=== PATIENT | female | born 1985 | race Caucasian/White ===

== ENCOUNTER → 2020-08-09 | Outpatient (CLI) | payer BC ==
--- NOTE | 2020-08-10 08:31 | CT ---
EXAMINATION TYPE: CT soft tissue neck w con DATE OF EXAM: 08/09/2020 COMPARISON: None HISTORY: Enlarged lymph nodes. CT DLP: 550.9 mGycm CONTRAST: Patient injected with 100 mL of Isovue M300. TECHNIQUE: Axial images at 3 mm thick sections. Reconstructed images in the coronal plane and sagitt al plane are reviewed. FINDINGS: Limited CT sections are obtained the lung apices. The lung apices appear clear. CT neck: The torus tubarius and fossa of Rosenmuller are normal. Operations Assistant spaces are normal. Para nasal sinuses and mastoid air cells are clear. Parotid glands appear normal and symmetrical. Submandibular glands, are normal. Parapharyngeal spac es are normal. No suspicious adenopathy is evident. More prominent jugulodigastric lymph nodes are e vident, not enlarged by CT criteria. Scattered bilateral small lymph nodes are present. The hypopharynx appears within normal limits. Vocal cord level appear symmetrical. Thyroid as visualized is normal. Osseous structures are normal. Upper lung windows appear clear. No superior mediastinal lymphadenopathy is evident. Mucosal thickenings within ethmoid air cells. Mucosal thickening or retention cysts within the left m axillary sinus. Remaining visualized paranasal sinuses are clear. IMPRESSIONS: 1. Scattered small lymph nodes present bilaterally. No suspicious enlarged adenopathy is identified. 2. Soft tissue neck is otherwise unremarkable.
== END | disposition home or self-care (01) ==
LOC: RADCTMAIN 17:54
PROVIDERS: ATTEND Family Medicine
DX: R59.0 Localized enlarged lymph nodes (principal)
CPT/HCPCS: 70491; Q9967

== ENCOUNTER → 2020-09-08 | Outpatient (CLI) | payer BC ==
[2020-09-08 19:14] LABS: HCT 43.3 % (37.2-46.3); HGB 14.7 g/dL (12.0-15.0); MCH 33.6 pg (27.0-32.0); MCHC 33.9 g/dL (32.0-37.0); MCV 99.1 fL (80.0-97.0); Mean Platelet Volume 10.7 fL (9.5-12.2); Platelet Count 295 X 10*3/uL (140-440); RBC 4.37 X 10*6/uL (4.10-5.20); RDW 11.9 % (11.5-14.5); WBC 9.37 X 10*3/uL (4.50-10.00)
[2020-09-08 22:50] LABS: Thyroid Peroxidase Antibodies 41.3 U/mL (0.0-60.0)
[2020-09-08 22:52] LABS: African American GFR (CKD) 129.2 (60.0-200.0); Albumin 4.8 g/dL (3.80-4.90); Albumin/Globulin Ratio 1.92 (1.60-3.17); Anion Gap 9.4 mmol/L (4.00-12.00); Calcium 9.2 mg/dL (8.7-10.3); Carbon Dioxide 23.6 mmol/L (21.6-31.8); Globulin 2.5 g/dL (1.6-3.3); Non-African American GFR(CKD) 111.5 (60.0-200.0); Potassium 4.4 mmol/L (3.5-5.5); Total Bilirubin 0.3 mg/dL (0.3-1.2); Total Protein 7.3 g/dL (6.2-8.2)
[2020-09-08 23:00] LABS: Prolactin 5.9 ng/mL (2.8-29.2); T4, Free (Free Thyroxine) 1.5 ng/dL (0.80-1.80)
[2020-09-09 05:47] LABS: ACTH 16.1 pg/mL (0.00-45.99)
== END | disposition home or self-care (01) ==
LOC: LABWHC1 12:57
PROVIDERS: ATTEND Internal Medicine Endocrinology, Diabetes & Metabolism
DX: E04.2 Nontoxic multinodular goiter (principal); R53.83 Other fatigue
CPT/HCPCS: 36415; 80053; 82024; 82533; 82607; 84146; 84439; 84443; 84481; 85027; 86376

== ENCOUNTER → 2020-11-03 | Outpatient (CLI) | payer BC | END | disposition home or self-care (01) | LOC: LABWHC1 12:04 | PROVIDERS: ATTEND Family Medicine | DX: M79.603 Pain in arm, unspecified (principal) | CPT/HCPCS: 36415; 85379 ==

== ENCOUNTER → 2021-01-23 | Outpatient (CLI) | payer BC | END | disposition home or self-care (01) | LOC: RADMRIMAIN 18:54 | PROVIDERS: ATTEND Orthopaedic Surgery | DX: Z53.9 Procedure and treatment not carried out, unspecified reason (principal) ==

== ENCOUNTER → 2021-02-24 | Outpatient (CLI) | payer BC ==
[2021-02-24 09:48] LABS: Basophils # (A) 0.1 k/uL (0-0.2); Basophils % (A) 1 %; Eosinophils # (A) 0.3 k/uL (0-0.7); Eosinophils % (A) 3 %; HCT 45.2 % (34.0-46.0); Lymphocytes # (A) 2.7 k/uL (1.0-4.8); Lymphocytes % (A) 26 %; MCHC 33.3 g/dL (31.0-37.0); MCV 102.2 fL (80.0-100.0); Mean Platelet Volume 8.5; Monocytes # (A) 0.5 k/uL (0-1.0); Monocytes % (A) 5 %; Neutrophils # (A) 6.8 k/uL (1.3-7.7); Neutrophils % (A) 64 %; Platelet Count 298 k/uL (150-450); RBC 4.42 m/uL (3.80-5.40); WBC 10.6 k/uL (3.8-10.6)
[2021-02-24 09:58] LABS: Potassium 4.7 mmol/L (3.5-5.1)
== END | disposition home or self-care (01) ==
LOC: LABPAT 08:39
PROVIDERS: ATTEND Orthopaedic Surgery
DX: Z01.812 Encounter for preprocedural laboratory examination (principal); M75.42 Impingement syndrome of left shoulder
CPT/HCPCS: 36415; 80051; 85025

== ENCOUNTER 2021-03-03 06:05 | Day surgery (SDC) | payer BC ==
[2021-03-01 12:52] VITALS: BMI 40.8
--- NOTE | 2021-03-02 12:17 | HP ---
HISTORY AND PHYSICAL CHIEF COMPLAINT: Left shoulder pain. 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 She notes progressive pain and stiffness. She completed a course of therapy without much relief. She has also tried medications without significant relief. She notes this significantly limits her. PAST MEDICAL HISTORY: Significant for hypertension, hypothyroidism. PAST SURGICAL HISTORY: Significant for cholecystectomy and hernia repair. CURRENT ALLERGIES: Metoprolol. ALLERGIES: She denies drug allergies. FAMILY HISTORY: Significant for cancer and hypertension. SOCIAL HISTORY: Negative for current tobacco or alcohol use. REVIEW OF SYSTEMS: Sixteen-point review of systems is otherwise reviewed and noncontributory. PHYSICAL EXAMINATION: On examination, the patient is approximately 5 feet tall, 210 pounds of endomorphic habitus. HEENT exam is nonfocal. NECK is supple. On examination of her left shoulder, she is tender about the anterior subacromial space. Mild subacromial crepitus is noted. Active range of motion forward elevation to 95 degrees, external rotation with arm at side 30 degrees, internal rotation to L5. Passively I am able to forward elevate her 100 degrees. Motor strength is 5 minus over 5 for external rotation and abduction. Impingement test, Neer tests are positive. Her distal neurovascular exam appears intact in the left upper extremity. Previous MRI report left shoulder 02/01/2021 shows tendinosis of the supraspinatus. IMPRESSION: 1. Left shoulder adhesive capsulitis. 2. Left shoulder impingement with rotator cuff tendinitis and possible partial- thickness tear. RECOMMENDATIONS: I talked to the patient at length regarding her condition and treatment options. At this point she remains quite symptomatic despite extensive conservative measures. After thorough discussion, she opts to proceed with surgery. We will plan to proceed with arthroscopic evaluation with probable subacromial decompression, possible synovectomy/rotator cuff debridement, in addition to possible manipulation under anesthesia. Risks and benefits were discussed at length in layman's terms. We will likely perform that as an outpatient procedure. MMODL / IJN: [id number] /
[~2021-03-03 06:05] MED LIST: DEXAMETHASONE SOD PHOSPHATE 4 MG/ML 1 ML VIAL IV ONE; LACTATED RINGERS 1,000 ML IV SCH; LIDOCAINE 1% (10MG/ML) FOR IV START INTRADERMA PRN; MIDAZOLAM 2 MG/2 ML VIAL IV PRN; ONDANSETRON 4 MG/2 ML VIAL IVP ONE
[2021-03-03] MEDS ORDERED: HYDROmorphone 0.5 MG/0.5 ML SYRINGE IVP PRN (07:00)
[2021-03-03] MEDS ORDERED: MIDAZOLAM 2 MG/2 ML VIAL IV ONE (07:13)
[2021-03-03] MEDS ORDERED: ROPIVACAINE 5 MG/ML 30 ML VIAL ONE (07:35)
[2021-03-03] MEDS ORDERED: MIDAZOLAM 2 MG/2 ML VIAL ONE (07:35)
[2021-03-03] MEDS ORDERED: EPINEPHrine (PF) 1 ML in SODIUM CHLORIDE 0.9% IRRIGATIO 3,000 ML IRRIGATION ONE ×8 (07:35)
[2021-03-03] MEDS ORDERED: SUCCINYLCHOLINE CHLORIDE 100 MG/5 ML SYR IV ONE (07:35)
[2021-03-03] MEDS ORDERED: DEXAMETHASONE SOD PHOSPHATE 4 MG/ML 1 ML VIAL ONE (07:35)
[2021-03-03] MEDS ORDERED: PROPOFOL 10 MG/ML 20 ML VIAL IV ONE (07:35)
[2021-03-03] MEDS ORDERED: fentaNYL (PF) 50 MCG/ML 2 ML AMP ONE (07:35)
[2021-03-03] MEDS ORDERED: NEOSTIGMINE 1 MG/ML 10 ML VIAL ONE (07:35)
[2021-03-03] MEDS ORDERED: GLYCOPYRROLATE 0.2 MG/ML 2 ML VIAL ONE (07:35)
[2021-03-03] MEDS ORDERED: KETOROLAC 15 MG/ML 1 ML VIAL ONE (07:35)
[2021-03-03] MEDS ORDERED: LIDOCAINE 1% INJ 10MG/ML (20 ML MDV) ONE (07:35)
[2021-03-03] MEDS ORDERED: ROCURONIUM 10 MG/ML (5 ML VIAL) IV ONE (07:35)
[2021-03-03] MEDS ORDERED: LACTATED RINGERS 1,000 ML IV ONE (08:20)
--- NOTE | 2021-03-03 08:47 | P.OP ---
Date of Procedure: 03/03/21 Preoperative Diagnosis: Left shoulder adhesive capsulitis/synovitis/ rotator cuff tendinitis/acromioclavicular joint arthritis Postoperative Diagnosis: Same Procedure(s) Performed: Left shoulder arthroscopic subacromial decompression/synovectomy/distal cla vicular resection/rotator cuff debridement/manipulation under anesthesia Anesthesia: sera BO Surgeon: Silvino Fernández Manager Business Intelligence #1: Ronnie Sanderson Estimated Blood Loss (ml): 10 Pathology: none sent Condition: stable Disposition: PACU Indications for Procedure: The patient's a 35-year-old female who presents with progressive left shoulder pain and stiffness despite conservative treatment. A discussion of the risks and benefits of operative intervention versus continued conservative measures made with patient. She opted to pursue surgery. Operative risks to include infection, neurovascular injury, developed blood clots, possible recurrence of stiffness and need for subsequent procedures was discussed. Informed consent was obtained. Operative Findings: As below Description of Procedure: The patient was brought to the operating room, and after induction of general anesthesia was placed in a beachchair position. A preoperative interscalene block was placed for postoperative analgesia. I examined the left shoulder. There was significant block to passive motion. Gentle manipulation was performed first with the arm at the side obtaining full external rotation. Moderate adhesions were encountered. I then obtained full forward elevation. Again there were moderate adhesions encountered. The left upper extremity was prepped and draped in normal fashion. The bony outlines the acromion, distal clavicle, and coracoid process were outlined with a skin marker. The glenohumeral joint was inflated with 50 mL of saline utilizing a spinal needle from posterior approach. A posterior portal was made through a 5 mm skin incision 1 cm medial and inferior to the posterior lateral border time. A blunt trocar was used to easily into the joint. Diagnostic arthroscopy was performed. An anterior portal was made just lateral to the coracoid process entering the joint above the subscapularis tendon. The subscapularis tendon appeared to be intact. There was significant synovitis involving the rotator interval that was debrided with a motorized shaver. Anterior labrum was intact. The inferior recess was inspected. The posterior labrum was intact. The long head of the biceps appeared to be intact. On inspection the rotator cuff, a partial thickness tear involving the anterior aspect the spur supraspinatus was noted involving approximately 3 mm of the tendon thickness. This was debrided back to stable base with a motorized shaver. The posterior portion the rotator cuff was intact. The arthroscope was then placed into the subacromial space. A lateral portal was made 2 centimeters inferior to the anterior lateral border of the acromion. The soft tissue on the undersurface of the acromion was debrided wit h a motorized shaver and electrocautery clearly defining the anterior medial and lateral borders as well as the distal clavicle. An anterior inferior acromioplasty was performed with a motorized ladan starting anterolateral, then extending this posteriorly, then extending this medially. I converted to a flat acromion and this was verified in the posterior and lateral viewing portals. The greater tuberosity was lightly decorticating with a shaver down to a bleeding bony surface. The distal clavicle was inspected. This appeared to impinge on the subacromial space therefore the distal 4 mm was resected with a motorized bur. Attention was then paid towards the rotator cuff. There was significant bursal thickening that was debrided with a motorized shaver. The rotator cuff appeared to be intact on the bursal surface. The arthroscope was then removed. The portals were closed with simple 3-0 nylon sutures. A sterile dressing was applied in addition to a sling. The patient was then awoken from general anesthesia and transferred to recovery room in good condition. Blood loss was estimated at 10 mL. No complications were incurred. Sponge and needle counts were correct in the case. Ronnie TILLEY assisted and the major components of the case to include arm positioning, decompression, and closure.
[2021-03-03 08:54] VITALS: TEMP 97
[2021-03-03] MEDS ORDERED: ONDANSETRON 4 MG/2 ML VIAL ONE (08:56)
[2021-03-03] MEDS ORDERED: ONDANSETRON 4 MG/2 ML VIAL IVP ONE (09:00)
[2021-03-03] MEDS ORDERED: diphenhydrAMINE 50 MG/ML 1 ML VIAL ONE (09:10)
[2021-03-03] MEDS ORDERED: diphenhydrAMINE 50 MG/ML 1 ML VIAL IVP ONE (09:13)
[2021-03-03 10:09] VITALS: BP 119/86; PULSE 75; RESP 16
--- NOTE | 2021-03-05 20:08 | P.ANPRN ---
Procedure Note - Anesthesia - Nerve Block Performed Left Interscalene Single Time Out Performed: Yes Date of Procedure: 03/03/21 Procedure Start Time: 07:12 Procedure Stop Time: 07:18 Location of Patient: PreOp Indication: Acute Post-Operative Pain, Requested by Surgeon Sedation Type: Sedate with meaningful contact maintained Preparation: Sterile Prep Position: Supine Needle Types: Pajunk Needle Gauge: 21 Ultrasound used to visualize needle placement: Yes Ultrasound used to observe medication spread: Yes Blood Aspirated: No Pain Paresthesia on Injection Noted: No Resistance on Injection: Normal Image Stored and Saved: Yes Events: Uneventful and Well Tolerated (Ropivacaine 0.5% 20 mL plus dexamethasone 4 mg)
== END 2021-03-03 10:35 | disposition home or self-care (01) ==
LOC: OR 06:05
PROVIDERS: ATTEND Orthopaedic Surgery
DX: M75.02 Adhesive capsulitis of left shoulder (principal); M19.012 Primary osteoarthritis, left shoulder; I10 Essential (primary) hypertension; E03.9 Hypothyroidism, unspecified; Z90.49 Acquired absence of other specified parts of digestive tract; Z98.890 Other specified postprocedural states; Z79.899 Other long term (current) drug therapy; Z82.49 Family history of ischemic heart disease and other diseases of the circulatory system; Z80.9 Family history of malignant neoplasm, unspecified
CPT/HCPCS: 29822; 29824; 64415; 81025; 76942; J2250; J1200; J1100; J2710; J0690; J2405; J0171; J2001; J3010; J2795; J1885; J0330; J2704; J1170

== ENCOUNTER → 2021-03-29 | Outpatient (CLI) | payer BC ==
--- NOTE | 2021-04-03 12:04 | MM ---
Reason for exam: screening (asymptomatic). Baseline mammogram. History: Patient is nulliparous. Took hormonal contraceptives for 20 years. Physical Findings: Nurse did not find any significant physical abnormalities on exam. MG 3D Screening Mammo W/Cad Bilateral CC and MLO view(s) were taken. There are scattered fibroglandular densities. Left MLO limited far posterior tissue. Technologist reports recent shoulder surgery. Posterior left MLO nodularity. Suspected low axillary tail lymph node. 3 months follow up recommended. ASSESSMENT: Probably benign, BI-RAD 3 RECOMMENDATION: Follow-up diagnostic mammogram of the left breast in 3 months.
== END | disposition home or self-care (01) ==
LOC: RADMAMWWP 09:32
PROVIDERS: ATTEND Obstetrics & Gynecology
DX: Z12.31 Encounter for screening mammogram for malignant neoplasm of breast (principal)
CPT/HCPCS: 77063; 77067

== ENCOUNTER → 2021-06-30 | Outpatient (CLI) | payer SELFPAY ==
--- NOTE | 2021-07-03 10:28 | MM ---
Reason for exam: follow-up at short interval from prior study. Last mammogram was performed 3 months ago. History: Patient is nulliparous. Took hormonal contraceptives for 20 years. Physical Findings: Nurse did not find any significant physical abnormalities on exam. MG Diagnostic Mammo LT w CAD CC, MLO, and XCCL view(s) were taken of the left breast. Prior study comparison: March 29, 2021, bilateral MG 3d screening mammo w/cad. The breast tissue is heterogeneously dense. This may lower the sensitivity of mammography. Persistent stable 6mm round lesion left posterior upper outer quadrant. These results were verbally communicated with the patient and result sheet given to the patient on 06/30/21. ASSESSMENT: Incomplete: need additional imaging evaluation, BI-RAD 0 RECOMMENDATION: Ultrasound of the left breast.
--- NOTE | 2021-07-03 10:30 | USB ---
Reason for exam: additional evaluation requested from abnormal screening. History: Patient is nulliparous. Took hormonal contraceptives for 20 years. US Breast Axilla LT Left breast axilla ultrasound demonstrates a 5mm benign lymph node likely correlates to mammographic finding. These results were verbally communicated with the patient and result sheet given to the patient on 06/30/21. ASSESSMENT: Benign, BI-RAD 2 RECOMMENDATION: Routine screening mammogram of both breasts at age 38.
== END | disposition home or self-care (01) ==
LOC: RADMAMWWP 10:55
PROVIDERS: ATTEND Obstetrics & Gynecology
DX: R92.8 Other abnormal and inconclusive findings on diagnostic imaging of breast (principal)
CPT/HCPCS: 77065

== ENCOUNTER → 2023-08-19 | Outpatient (CLI) | payer OTHER ==
--- NOTE | 2023-08-19 17:43 | P.SLEEP ---
History of Present Illness DATE: 08/19/2023 CONSULTATION/NEW PATIENT EVALUATION HISTORY OF PRESENT ILLNESS/SLEEP-WAKE EVALUATION: 37-year-old lady had been ev aluated in the sleep center for possible obstructive sleep apnea hypopnea syndrome, possible leg movements at night. SLEEP SCHEDULE: Usually sleep schedule from 11:30 PM to 7 AM on weekdays and from 2003 AM until 1011 AM on weekend. FALLING ASLEEP: Patient has significant difficulties with falling asleep, has TV set and bedroom. DURING SLEEP: Patient snores and wakes up from sleep 3 times with dry mouth and with one episode of nocturia. Positive history of hypnogogical hallucinations, no sleep paralysis, no cataplexy. Positive history of possible night terrors. DURING THE DAY/WAKE STATE: Patient wake up tired, has difficulties to pay attention, has problems with memory, concentration, irritability and anxiety. [place] sleepiness scale is 6. Patient may take 1 nap after work. PAST MEDICAL HISTORY: Hypertension, rheumatoid arthritis, headaches, thyroid nodule, acid reflux. PAST SURGICAL HISTORY: Left shoulder surgery, cholecystectomy, hernia repair. MEDICATIONS: metoprolol 50 mg once a day, amlodipine 2.5 mg once a day. SOCIAL HISTORY: positive history of smoking half pack a day up to 15 years, quit in 2014, alcohol consumption occasional. FAMILY HISTORY: Heart problems, emphysema, diabetes. REVIEW OF SYSTEMS: snoring, multiple awakenings from sleep. No fevers. No double vision. No recent chest pain. No shortness of breath. No abdominal pain. No bleeding episodes. No blood in urine. No seizure episodes. PHYSICAL EXAMINATION: GENERAL: A pleasant patient without any distress. VITAL SIGNS: BP 141/95 , HR 71 , RR 12 , weight 237.0 pounds, height 5 foot 1.5 inches, body mass index 44.0 . HEENT: PERRLA, EOMI. Evaluation of oropharynx showed tongue protrudes midline, low position of soft palate Mallampati 3. NECK: Supple. No JVD. Thyroid is not palpable. 16 inches in circumference. LUNGS: Clear to percussion and to auscultation. Good air exchange. No wheezing or rhonchi. HEART: S1, S2 regular. No murmurs, gallops or rubs. ABDOMEN: Soft and nontender. Bowel sounds are present. No organomegaly appreciated. EXTREMITIES: No clubbing or cyanosis. ORACLE DRM CONSULTANT: Awake, alert, and oriented x3. Cranial nerves 2 to 7 intact. There is no fasciculation or atrophy noted. No focal deficits observed. ASSESSMENT: 1. Snoring, multiple awakenings from sleep, low position of soft palate Mallampati 3, white neck 16 inches in circumference, sleepiness. Obstructive sleep apnea hypopnea syndrome. 2. Obesity, BMI 44.0. 3. restless leg symptoms. 4. possibly periodic limb movements. 5 Hypertension. 6 . history of rheumatoid arthritis. 7. headaches. 8. thyroid nodule. 9 . acid reflux. 10. left shoulder surgery. 11. status post cholecystectomy. 12. status post hernia repair. PLAN: 1. Polysomnography for evaluation of patient's breathing during sleep and to check for possible periodic limb movements . 2. Following plan after reading sleep study 3. Preferable position during sleep on the side. 4. No driving if patient feels any sleepiness. Patient is aware of civil and criminal liability for unsafe driving. 5. Sleep hygiene with regular sleep time for at least 7.5-8 hours. 6. Watching and losing weight. Thank you very much for referring this patient for consultation. Sincerely, Steve Dent MD, PhD, FAASM. Diplomat of [place] [employer], Sleep Medicine Board by [place] [employer] [employer] Gathering Technician of [facility] [place] Past Medical History Past Medical History: Hypertension Additional Past Medical History / Comment(s): PT STATES THAT SHE USED TO ON LISINOPRIL BUT HER DOCTOR TOOK THEM OFF History of Any Multi-Drug Resistant Organisms: None Reported Past Surgical History: Cholecystectomy, Hernia Repair Past Alcohol Use History: None Reported Medications and Allergies Home Medications Medication Instructions Recorded Confirmed Type Metoprolol Succinate (ER) [Toprol 50 mg PO DAILY 03/01/21 03/03/21 History Xl] HYDROcodone/APAP 7.5-325MG [[place] 1 each PO Q6HR PRN #21 tab 03/03/21 Rx 7.5] Allergies Allergy/AdvReac Type Severity Reaction Status Date / Time No Known Allergies Allergy Verified 06/30/21 11:41 Sleep Note - Sleep Note Sleep Note: Temperature: Pulse Rate: Respiratory Rate: Blood Pressure: SpO2: Height: Weight: BMI: Neck Circumference:
== END ==
LOC: 3 N SLEEP 15:37
PROVIDERS: ATTEND Internal Medicine
DX: G47.33 Obstructive sleep apnea (adult) (pediatric) (principal); E66.9 Obesity, unspecified; G25.81 Restless legs syndrome; G47.61 Periodic limb movement disorder; I10 Essential (primary) hypertension; M06.9 Rheumatoid arthritis, unspecified; R51.9 Headache, unspecified; E04.1 Nontoxic single thyroid nodule; K21.9 Gastro-esophageal reflux disease without esophagitis; Z98.890 Other specified postprocedural states; Z90.49 Acquired absence of other specified parts of digestive tract; R06.83 Snoring; Z68.41 Body mass index [BMI] 40.0-44.9, adult; Z79.899 Other long term (current) drug therapy
CPT/HCPCS: 99211

== ENCOUNTER 2023-11-18 19:50 | Outpatient (CLI) | payer OTHER ==
--- NOTE | 2023-11-20 13:28 | P.PCN ---
Description of Procedure: CLINICAL: Titration with positive air pressure has been done for correction of respiratory abnormalities during sleep. DESCRIPTION OF PROCEDURE: The standard montage for clinical polysomnography included the electroencephalogram, the electrocardiogram, the mentalis surface electromyography and Lead II cardiography. The respiratory battery consisted of measurements of nasal /buccal air flow, pressure transducer measurements from the nose, thoracic and /or abdominal effort and intercostal surface electromyography. Video monitoring has been done to check for any parasomnia events. Nocturnal oxyhemoglobin saturations were obtained by finger oximetry. Step-escobar titration with positive airway pressure was utilized to control respiratory events. Raw data of sleep recording has been reviewed and is adequate. RESULTS: Sleep efficiency was decreased to 79.2%. Latency to sleep onset was extremely long 68.5 minutes.]. Sleep architecture showed stage N1 was slightly short 4.0%, Delta sleep was normal 20.1%, REM sleep was slightly short 18.4%. Heart rate was minimum 60 BPM, maximum 73 BPM, average 66 BPM. EMG showed 0 periodic limb movements per hour. PAP titration have been done with CPAP up to the pressure 8 cm H2O. The best results were at the pressure 8 cm H2O. Apnea hypopnea index reduced to 1.4. IMPRESSION: 1. Obstructive sleep apnea hypopnea syndrome mostly on controle with PAP treatment. 2. No significant periodic limb movements have been documented. Please see other impressions from consultation. PLAN: 1. The patient will have treatment with positive air pressure equipment with the level of pressure AutoPAP 5-9 cm H2O and should use it every night for the whole night. 2. Watching and losing weight. 3. Sleep hygiene with regular time in bed for at least 8 hours. 4. No driving if feeling any sleepiness. 5. I will see the patient for follow up visit to explain the results of the test, recommendations, check compliance with treatment and make any necessary adjustment related to mask fitting, pressure and humidification. Thank you very much for allowing me to participate in the management of your patient. Sincerely, Steve Dent MD, PhD, FAASM Diplomat of [place] [employer] Sleep Medicine Board of [place] [employer] Veterans Contact Representative of [facility] [place]
== END 2023-11-19 05:30 | disposition home or self-care (01) ==
LOC: 3 N SLEEP 19:50
PROVIDERS: ATTEND Internal Medicine
DX: G47.33 Obstructive sleep apnea (adult) (pediatric) (principal); G47.61 Periodic limb movement disorder
CPT/HCPCS: 95811

== ENCOUNTER → 2024-02-05 | Outpatient (CLI) | payer OTHER ==
[2024-02-05 16:56] VITALS: BP 123/80; PULSE 84; RESP 16; TEMP 98.2
--- NOTE | 2024-02-05 17:26 | P.PROGSL ---
Subjective DATE: 02/05/2024 FOLLOW UP VISIT. Patient with obstructive sleep apnea hypopnea syndrome return to sleep center for follow-up visit. Recently patient had sleep study which documented obstructive sleep apnea hypopnea syndrome. Patient was initiated on PAP therapy and today is first visit after treatment was started. Patient was able to use PAP equipment every night for the whole night. The patient does not have significant problems with the mask, PAP pressure and humidification. [place] sleepiness scale is 6, which is normal. I checked information from PAP unit. PAP unit pressure 5-9, average 8.2 cm H2O. Usage is 87% and 70% for more then 4 hours, average 5.5 hours per night. Leak is 8.5 l/m, which is in acceptable range. Apnea Hypopnea Index is 0.3, which is normal. MEDICATIONS: Please see below During physical exam: GENERAL: A pleasant patient without any distress. VITAL SIGNS: Please see below, weight 235 pounds. HEENT: PERRLA, EOMI.low position of soft palate, Mallapati 3. NECK: Supple. No JVD. LUNGS: Clear to percussion and to auscultation. Good air exchange. No wheezing or rhonchi. HEART: S1, S2 regular. ABDOMEN: Soft and nontender. Obese EXTREMITIES: No clubbing or cyanosis. MANNEQUIN MOUNTER: Awake, alert, and oriented x3. No focal deficit. Impressions: 1. Obstructive sleep apnea-hypopnea syndrome. Patient demonstrated great compliance with treatment, benefiting from treatment. 2. Obesity. 3. Hypertension. 4. History of rheumatoid arthritis. 5. Headaches. 6. Thyroid nodule. 7. Possible periodic limb movements. 8. Status post cholecystectomy. 9. Status post left shoulder surgery. Plan: 1. Continue using PAP equipment every night for the whole night. 2. To change air filter at least 1-2 times per month. 3. PAP unit should stay lower then position of the head. 4. Advised patient to remove all remaining water from humidifier canister daily and make it dry after each usage. Refill canister with fresh distilled water before each usage. 5. Sleep hygiene with regular time in bed for at least 8 hours. 6. Precautions related to driving. No driving if feel any sleepiness. 7. I will maintain prescription for PAP supplies including mask, tube, filters. 8. Follow up visit in 6 months or earlier if patient has any problems. 9. Watching and losing weight. Thank you very much for allowing me to participate in the management of your patient. Steve Dent MD, PhD, FAASM. Diplomat of [place] [employer], Sleep Medicine Board by [place] [employer] Support of [facility] [place] Objective - Vital Signs Vital Signs: Vital Signs Temp 98.2 F 02/05/24 16:55 Pulse 84 02/05/24 16:55 Resp 16 02/05/24 16:55 BP 123/80 02/05/24 16:55 Pulse Ox 97 02/05/24 16:55 FiO2 Home Medications: Home Medications Medication Instructions Recorded Confirmed Type Metoprolol Succinate (ER) [Toprol 50 mg PO DAILY 03/01/21 03/03/21 History Xl] HYDROcodone/APAP 7.5-325MG [[place] 1 each PO Q6HR PRN #21 tab 03/03/21 Rx 7.5]
== END ==
LOC: 3 N SLEEP 16:20
PROVIDERS: ATTEND Internal Medicine
DX: G47.33 Obstructive sleep apnea (adult) (pediatric) (principal); E66.9 Obesity, unspecified; I10 Essential (primary) hypertension; R51.9 Headache, unspecified; E04.1 Nontoxic single thyroid nodule; Z87.39 Personal history of other diseases of the musculoskeletal system and connective tissue; Z90.49 Acquired absence of other specified parts of digestive tract; Z98.890 Other specified postprocedural states; Z99.89 Dependence on other enabling machines and devices; Z79.899 Other long term (current) drug therapy
CPT/HCPCS: 99212

== ENCOUNTER → 2025-03-05 | Outpatient (CLI) | payer OTHER ==
--- NOTE | 2025-03-05 10:17 | US ---
EXAMINATION TYPE: US venous doppler duplex LE LT DATE OF EXAM: 03/05/2025 10:05 AM COMPARISON: NONE CLINICAL INDICATION: Female, 39 years old with history of M79.662 PAIN IN LEFT LOWER LEG; Coldness le ft leg. Left leg edema and pain TECHNIQUE: The lower extremity deep venous system is examined utilizing real time linear array sonog abbie with graded compression, doppler sonography and color-flow sonography. Grayscale, color doppler , spectral doppler imaging performed of the deep veins of the lower extremities FINDINGS: SIDE PERFORMED: left VESSELS IMAGED: Common Femoral Vein Deep Femoral Vein Greater Saphenous Vein * Femoral Vein Popliteal Vein Small Saphenous Vein * Proximal Calf Veins (* superficial vessels) Left Leg: No evidence of DVT as visualized ; There is normal flow, compressibility, vascular wavefor ms. IMPRESSION: No evidence for deep vein thrombosis of the left lower extremity. [facility], , 03/05/2025 10:15 AM
== END | disposition home or self-care (01) ==
LOC: RADUSWWP 09:31
PROVIDERS: ATTEND Family Medicine
DX: M79.89 Other specified soft tissue disorders (principal); R60.0 Localized edema